=== PATIENT | female | born 1940 | race Two or more races ===

== ENCOUNTER → 2020-12-24 14:35 | Outpatient (CLI) | payer MEDICARE, SELFPAY ==
[2020-12-24 15:59] LABS: Basophils % 0.7 % (0.1-2.0); Eosinophils # 0.1 K/mm3 (0.0-0.4); Eosinophils % 1.2 % (0.1-12.0); Hematocrit 41.1 % (37.0-47.0); Hemoglobin 13.4 g/dL (12.2-16.2); Lymphocytes % 39.6 % (10-50); Mean Corpuscular HGB Conc 32.5 g/dL (31.8-35.4); Mean Corpuscular Volume 98.4 fl (81-99); Mean Platelet Volume 9.7 fl (7.4-10.4); Monocytes # 0.3 K/mm3 (0.1-1.0); Monocytes % 5.8 % (1.7-9.3); Neutrophils # 2.6 K/mm3 (1.8-7.8); Neutrophils % 52.8 % (37.0-80.0); Platelet Count 215 K/mm3 (142-424); Red Blood Count 4.17 M/mm3 (4.20-5.40); Red Cell Distribution Width 13.1 % (11.5-17.5); White Blood Count 4.9 K/mm3 (4.8-10.8)
[2020-12-24 16:08] LABS: Alanine Aminotransferase 21 U/L (12-78); Albumin Level 4.3 g/dl (3.5-5.0); Albumin/Globulin Ratio 1.7 (1.1-1.8); Alkaline Phosphatase 98 U/L (38-126); Anion Gap 8.5 mEq/L (5-15); Aspartate Amino Transferase 40 U/L (14-36); Bilirubin,Total 0.8 mg/dl (0.2-1.3); Blood Urea Nitrogen 26 mg/dl (7-17); Calcium 9.6 mg/dl (8.4-10.2); Carbon Dioxide 31 mmol/L (22.0-30.0); Chloride 105 mmol/L (98-107); Chol/HDL Ratio 2.4 (1-3.5); Cholesterol 222 mg/dl (140-200); Estimated Glomerular Filt Rate 69 ml/min (>60); GFR (African American) 84 ML/MIN (>60); Globulin 2.6 g/dL (1.3-3.2); Glucose 97 mg/dl (74-100); HDL Cholesterol 94 mg/dl (40-60); Potassium 4.5 mmoL/L (3.5-5.1); Sodium 140 mmol/L (136-145); Total Protein,Serum 6.9 g/dl (6.3-8.2); Triglycerides 47 mg/dl (30-150); VLDL Cholesterol 9 mg/dL (0-40)
[2020-12-24 16:19] LABS: Direct LDL Cholesterol 84.67 mg/dL (100-129)
[2020-12-24 16:23] LABS: Erythrocyte Sedimentation Rate 25 mm/hr (0-30)
[2020-12-24 16:26] LABS: 25-OH Vitamin D, Total 86.8 ng/mL (30-100)
[2020-12-24 16:27] LABS: Free T4 (Free Thyroxine) 1.38 ng/dl (0.78-2.19)
[2020-12-24 16:41] LABS: Thyroid Stimulating Hormone 3.22 uIU/mL (0.465-4.68)
[2020-12-24 17:16] LABS: Vitamin B12 929 pg/mL (239-931)
[2020-12-24 17:24] LABS: Folate > 20.00 ng/mL
== END ==
PROVIDERS: Visit Provider Emergency Medicine
DX: R53.83 Other fatigue (principal); E78.5 Hyperlipidemia, unspecified; E55.9 Vitamin D deficiency, unspecified; M54.2 Cervicalgia
CPT/HCPCS: 80053; 80061; 82306; 82607; 82746; 84439; 84443; 85025; 85651

== ENCOUNTER → 2021-01-21 09:59 | Outpatient (CLI) | payer MEDICARE, OTHER, SELFPAY ==
--- NOTE | 2021-01-21 09:59 | MM_ITS ---
PROCEDURE INFORMATION: Exam: MG Screening 3D Mammography Exam date and time: 01/21/2021 9:59 AM Age: 80 years old Clinical indication: Encounter for screening mammogram for malignant neoplasm of breast TECHNIQUE: Imaging protocol: Screening tomosynthesis and 2D mammography including computer-aided detection (CAD) when performed. COMPARISON: No relevant prior studies available. FINDINGS: MAMMOGRAPHY: Breast composition: The breast tissue is heterogeneously dense, which may obscure small masses. Mass: None. Architectural distortion: None. Calcifications: No suspicious calcifications. Asymmetric density: None. Skin thickening: None. Axillary adenopathy: None. IMPRESSION: No mammographic evidence of malignancy. Annual screening is recommended unless otherwise clinically indicated. ASSESSMENT: BI-RADS Category 1: Negative
--- NOTE | 2021-01-21 09:59 | XR_ITS ---
PROCEDURE: XR MULTIPLE SPINE 6+V CLINICAL INDICATION: back pain COMPARISON: No exams were available for comparison FINDINGS: C-spine: Five views, degenerative disc disease C3-C4 C4-C5 C5-C6 and C6-C7. Facet hypertrophic changes C3-C7. Foraminal narrowing on the right at C6-C7 and on the left at C3-C4 C5-C6 and C6-C7. Thoracic spine: A mild kyphosis. No acute fracture or dislocation. Multilevel degenerative disc disease with small endplate osteophytes. No malalignment. Lumbar spine: Lumbar scoliosis convex right. Degenerative disc disease L4-5. Small anterior osteophytes are present. No lytic or blastic changes. No acute fracture. 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 Dictated by: Atif Rahman MD 01/21/2021 20:02 Atif Rahman MD in [place] 01/21/2021 20:02
--- NOTE | 2021-01-21 09:59 | XR_ITS ---
PROCEDURE: XR DEXA AXIAL SKELETON CLINICAL HISTORY: screening COMPARISON: No exams were available for comparison FINDINGS: The right hip BMD is 0.57 with a T-score of -2.5. The left hip BMD is 0.618 with a T-score of -2.7. The lumbar spine BMD is 0.723 with a T-score of -2.9. IMPRESSION: This patient is considered osteoporotic according to the World Health Organization criteria. Fracture risk is high. Treatment is advised. Based on these results a follow-up exam is recommended in 1 year. Dictated by: Atif Rahman MD 01/21/2021 12:16 Atif Rahman MD in [place] 01/21/2021 12:16
== END ==
PROVIDERS: PCP Emergency Medicine; Visit Provider Emergency Medicine
DX: M81.0 Age-related osteoporosis without current pathological fracture (principal); Z13.820 Encounter for screening for osteoporosis; Z12.31 Encounter for screening mammogram for malignant neoplasm of breast
CPT/HCPCS: 72084; 77063; 77067; 77080

== ENCOUNTER → 2021-06-17 12:15 | Outpatient (CLI) | payer MEDICARE, OTHER, SELFPAY ==
--- NOTE | 2021-06-17 12:21 | XR_ITS ---
PROCEDURE: XR WRIST LT MIN 3V CLINICAL INDICATION: left wrist pain, CTS COMPARISON: No exams were available for comparison FINDINGS: No fracture or dislocation. No lytic or blastic change. There is normal mineralization. Chondrocalcinosis is present at the triangular fibrocartilage. There are osteoarthritic changes at the 1st carpal metacarpal junction. Small calcific density is present along the anterior aspect the scaphoid on the lateral view could be due to an old injury or dystrophic calcification Other findings:None. 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
--- NOTE | 2021-06-17 12:21 | XR_ITS ---
PROCEDURE: XR WRIST RT MIN 3V CLINICAL INDICATION: RIGHT WRIST PAIN, CTS COMPARISON: No exams were available for comparison FINDINGS: No fracture or dislocation. No lytic or blastic change. There is normal mineralization. There is chondrocalcinosis at the triangular fibrocartilage. Subchondral cystic changes are present involving the lunate and the scaphoid. Mild osteoarthritic changes 1st carpal metacarpal junction with nonspecific 2 mm calcific density lateral to the trapezium. Chondrocalcinosis also noted along the anterior aspect of the wrist joint Other findings:None. IMPRESSION: Chondrocalcinosis with degenerative changes. Dictated by: Atif Rahman MD 06/17/2021 14:08 Atif Rahman MD in [place] 06/17/2021 14:08
== END ==
PROVIDERS: PCP Emergency Medicine; Visit Provider Orthopaedic Surgery
DX: M25.532 Pain in left wrist (principal); M25.531 Pain in right wrist
CPT/HCPCS: 73110

== ENCOUNTER → 2021-06-28 12:04 | Outpatient (CLI) | payer MEDICARE, OTHER, SELFPAY ==
--- NOTE | 2021-06-28 12:19 | XR_ITS ---
PROCEDURE: XR CHEST 2V CLINICAL HISTORY: preop, sx 07/01/21 COMPARISON: No exams were available for comparison FINDINGS: Borderline cardiomegaly without failure. Mild thoracic kyphosis with diffuse osteopenia No acute bony abnormalities. IMPRESSION: No acute findings. Dictated by: Atif Rahman MD 06/28/2021 14:43 Atif Rahman MD in [place] 06/28/2021 14:43
[2021-06-28 13:31] LABS: Basophils # 0.1 K/mm3 (0-0.2); Basophils % 1.1 % (0.1-2.0); Eosinophils # 0.1 K/mm3 (0.0-0.4); Eosinophils % 1.1 % (0.1-12.0); Hematocrit 42.5 % (37.0-47.0); Hemoglobin 13.8 g/dL (12.2-16.2); Lymphocytes # 2.5 K/mm3 (0.7-4.5); Lymphocytes % 43.3 % (10-50); Mean Corpuscular HGB Conc 32.6 g/dL (31.8-35.4); Mean Corpuscular Hemoglobin 33.2 pg (27.0-31.2); Mean Platelet Volume 8.7 fl (7.4-10.4); Monocytes # 0.3 K/mm3 (0.1-1.0); Monocytes % 5.5 % (1.7-9.3); Neutrophils # 2.8 K/mm3 (1.8-7.8); Neutrophils % 49.1 % (37.0-80.0); Platelet Count 256 K/mm3 (142-424); Red Blood Count 4.16 M/mm3 (4.20-5.40); Red Cell Distribution Width 12.8 % (11.5-17.5); White Blood Count 5.7 K/mm3 (4.8-10.8)
[2021-06-28 13:50] LABS: Alanine Aminotransferase 11 U/L (12-78); Albumin Level 4.4 g/dl (3.5-5.0); Albumin/Globulin Ratio 1.8 (1.1-1.8); Alkaline Phosphatase 73 U/L (38-126); Anion Gap 7.5 mEq/L (5-15); Aspartate Amino Transferase 29 U/L (14-36); Bilirubin,Total 0.3 mg/dl (0.2-1.3); Blood Urea Nitrogen 21 mg/dl (7-17); Calcium 9.8 mg/dl (8.4-10.2); Carbon Dioxide 33 mmol/L (22.0-30.0); Chloride 102 mmol/L (98-107); Estimated Glomerular Filt Rate 69 ml/min (>60); GFR (African American) 83 ML/MIN (>60); Globulin 2.5 g/dL (1.3-3.2); Glucose 79 mg/dl (74-100); Potassium 5.5 mmoL/L (3.5-5.1); Sodium 137 mmol/L (136-145); Total Protein,Serum 6.9 g/dl (6.3-8.2)
== END ==
PROVIDERS: Visit Provider Orthopaedic Surgery
DX: Z01.818 Encounter for other preprocedural examination (principal); Z11.52 Encounter for screening for COVID-19; G56.01 Carpal tunnel syndrome, right upper limb
CPT/HCPCS: 36415; 71046; 80053; 85025; C9803; U0003; U0005

== ENCOUNTER 2021-07-01 11:11 | Day surgery (SDC) | payer MEDICARE, OTHER, SELFPAY ==
[2021-07-01 11:33] VITALS: BMI 19.8
[2021-07-01 11:39] VITALS: BP 140/74; PULSE 50; RESP 18; TEMP 36.7; O2SAT 98
[2021-07-01 13:41] VITALS: BP 80/42; PULSE 53; RESP 18; TEMP 36.2; O2SAT 93
[2021-07-01 13:55] VITALS: BP 70/42; PULSE 50; RESP 18; O2SAT 95
[2021-07-01 14:02] VITALS: BP 85/48; PULSE 47; RESP 18; O2SAT 94
[2021-07-01 14:13] VITALS: BP 139/65; PULSE 48; RESP 18; O2SAT 94
[2021-07-01 14:30] VITALS: BP 153/75; PULSE 56; RESP 18; O2SAT 93
--- NOTE | 2021-07-01 15:38 | HMH.OPNOTE ---
Date of procedure: 07/01/21 Pre-op Diagnosis:: Carpal tunnel syndrome, right wrist Post-op Diagnosis:: Same Procedure performed:: Open carpal tunnel release, right wrist Surgeon:: Cali Nobles MD Infrastructure Analyst(s):: Samia Dia PA-C Anesthesia: MAC, local (10 mL of 1% lidocaine with epinephrine) Estimated blood loss (mL): 1 Clinical Note:: Patient is an 81-year-old female with bilateral carpal tunnel syndrome with long-standing symptoms. The clinical findings are consistent with the diagnosis of carpal tunnel syndrome. EMG/NCV studies confirmed carpal tunnel syndrome on both sides and she has more severe symptoms on the right side. Patient is having significant and disabling symptoms and has failed to respond adequately to conservative management. Therefore, carpal tunnel release surgery is necessary to relieve symptoms, preserve the remaining fibers of the median nerve, improve function and decrease the pain, paresthesias and weakness and to prevent permanent nerve damage. Please refer to my office note for full details. Operative findings:: The intraoperative findings showed the median nerve to be tightly compressed and hyperemic. The flexor retinaculum was noted to be thick and tight. There was mild synovitis in the carpal tunnel. There was no evidence of any space-occupying lesions within the carpal tunnel. Operative note:: On the day of the surgery the patient and her daughter were met in the preoperative area. Patient was positively identified and the operative site was marked and initialed by me. A physical examination was performed and the chart was updated. I have again discussed the procedure, risks, benefits and alternatives with the patient. The complications discussed include but are not limited to- bleeding, injury to nerves, blood vessels and tendons, infection, wound dehiscence, incomplete relief/continued pain, persistent numbness, palmar hypersensitivity, pillar pain, DVT/PE, complex regional pain syndrome(CRPS), worsening of nerve damage, failure of the condition to improve, incomplete return of function, bowstringing of tendons, weakness of business operations specialist strength, recurrence, failure of the surgery to accomplish the desired goals, decreased use of the hand, loss of use of the arm, loss of the hand or arm, loss of life. Likely need for further surgery in the future has been discussed. I've indicated to the patient where the proposed incision would be made and also discussed the possibility of extending the incision if needed to accomplish an effective release. We have discussed how the goal of surgery is to protect the fibers which have remained healthy and hopefully reverse the symptoms of the fibers which are compromised but still recoverable. We have explained that, fibers that are permanently damaged will not recover. They asked appropriate questions and all have been answered by me. Patient wished to proceed with the surgery. Patient understood the risks, agreed to proceed with surgery and no guarantees or assurances were given or implied. The patient was brought to the operating room and placed supine on the operating table. The right upper extremity was placed over a side table. All the bony prominences were well-padded. The patient had a MAC anesthesia administered by the soiled linen distributor. A well-padded tourniquet cuff was placed over the upper arm. The right upper extremity was prepped and draped in the usual sterile fashion. A preprocedure timeout was performed as per hospital policy. Administration of prophylactic antibiotics was confirmed with the soiled linen distributor. The skin incision was marked using the Amaay's landmarks, just ulnar to the thenar crease. The skin and soft tissue around the incision were then infiltrated with 10 mL of 1% lidocaine with epinephrine. The limb was exsanguinated with the Esmarch bandage and tourniquet was inflated to 250 mmHg. Please see nursing records for the total tourniquet time. Amaya's landmarks were utiliz
== END 2021-07-01 14:30 | disposition home or self-care (01) ==
LOC: OR 11:14
PROVIDERS: PCP Emergency Medicine; Visit Provider Orthopaedic Surgery
PROC: (CPT 64721; principal; 2021-07-01 12:30)
DX: G56.01 Carpal tunnel syndrome, right upper limb (principal)
CPT/HCPCS: 64721; 96374

== ENCOUNTER 2021-07-22 06:16 | Day surgery (SDC) | payer MEDICARE, OTHER, SELFPAY ==
[2021-07-18 12:38] VITALS: BMI 19.8
[2021-07-22 07:11] VITALS: BP 161/50; PULSE 51; RESP 18; TEMP 36.8; O2SAT 98
--- NOTE | 2021-07-22 10:18 | HMH.ANESCL ---
[facility] Anesthesia Checklist - Patient Identification Patient Identification: Arm Band - Structural Data Admitted From: Home Planned Operative Procedure/s: Left Carpal Tunnel Release Consent for Planned Operative Procedure(s) Verified: Yes Verified Documents: Surgical Consent, History and Physical - NPO Status Verified Time NPO: 00:00 - Additional verifications Anesthesia Reactions: Yes (HYPOTENSION) Hx Blood Transfusions: No Blood Transfusion Reaction: No - Airway Assessment C-Spine Mobility Assessed: Yes (mp2) TMJ Mobility Assessed: Yes Dentition: Good Dentition (upper bridge) - Neurological Assessment Level of Consciousness: Awake, Alert - Anesthesia Plan Anesthesia Risk discussed: Yes Anesthesia Plan: Verified ASA Class: II Anesthesia Type: MAC w/Block (Supraclavicular nerve block) [facility] History I have reviewed the patient's past medical history: Yes Medical History: Reports:: Hyperlipidemia, Hypertension Denies:: Cancer, Diabetes Mellitus Type 1, Diabetes Mellitus Type 2, Internal Pacemaker, MRSA, Seizures *Have you ever received a pneumonia vaccine?: Yes *Have you received a flu vaccine this season?: Yes Other Medical History: Reports: Arthritis. Denies: Blood Transfusion Reaction Anesthesia experience/problems:: nac Laterality Cases: Right: Carpal Tunnel Release Other Surgeries: Yes: Cholecystectomy, Hysterectomy-Total, Plastic Surgery, Other. No: Pacemaker Amputation: No Fractures: No - *Social History Last grade of school completed: High school graduate Smoking Status: Never smoker Alcohol Intake: never Alcohol Intake Frequency:: a few times a month Substance Use Type: former substance user *Occupational Status:: retired *Travel in the last 8 weeks: None Family Hx:: Diabetes
[2021-07-22 10:21] VITALS: TEMP 43
[2021-07-22 10:50] VITALS: BP 146/82; PULSE 50; RESP 18; TEMP 36.2; O2SAT 95
[2021-07-22 11:05] VITALS: BP 158/84; PULSE 51; RESP 18; O2SAT 94
[2021-07-22 11:20] VITALS: BP 174/82; PULSE 50; RESP 18; O2SAT 95
--- NOTE | 2021-07-22 11:39 | HMH.OPNOTE ---
Date of procedure: 07/22/21 Pre-op Diagnosis:: Carpal tunnel syndrome, left Post-op Diagnosis:: Same Procedure performed:: Open carpal tunnel release, left wrist Surgeon:: Cali Nobles MD Publications Writer(s):: Samia Dia PA-C TON CONTAINER SHIPPER:: Javier Cameron Anesthesia: MAC, regional (Supraclavicular nerve block) Estimated blood loss (mL): 2 Clinical Note:: Patient is an 81-year-old female with left carpal tunnel syndrome with long-standing symptoms. The clinical findings are consistent with the diagnosis of carpal tunnel syndrome. Previously EMG/NCV studies confirmed carpal tunnel syndrome on both sides and she previously underwent successful carpal tunnel release on the right side. Patient is having significant and disabling symptoms on the left side and has failed to respond adequately to conservative management. Therefore, left carpal tunnel release surgery is necessary to relieve symptoms, preserve the remaining fibers of the median nerve, improve function and decrease the pain, paresthesias and weakness and to prevent permanent nerve damage. Please refer to my office note for full details. Operative findings:: The intraoperative findings showed the median nerve to be tightly compressed and hyperemic. The flexor retinaculum was noted to be thick and tight. There was mild synovitis in the carpal tunnel. There was no evidence of any space-occupying lesions within the carpal tunnel. Operative note:: On the day of the surgery the patient was met in the preoperative area. Patient was positively identified and the operative site was marked and initialed by me. A physical examination was performed and the chart was updated. I have again discussed the procedure, risks, benefits and alternatives with the patient. The complications discussed include but are not limited to- bleeding, injury to nerves, blood vessels and tendons, infection, wound dehiscence, incomplete relief/continued pain, persistent numbness, palmar hypersensitivity, pillar pain, DVT/PE, complex regional pain syndrome(CRPS), worsening of nerve damage, failure of the condition to improve, incomplete return of function, bowstringing of tendons, weakness of supervisor crack off strength, recurrence, failure of the surgery to accomplish the desired goals, decreased use of the hand, loss of use of the arm, loss of the hand or arm, loss of life. Likely need for further surgery in the future has been discussed. I've indicated to the patient where the proposed incision would be made and also discussed the possibility of extending the incision if needed to accomplish an effective release. We have discussed how the goal of surgery is to protect the fibers which have remained healthy and hopefully reverse the symptoms of the fibers which are compromised but still recoverable. We have explained that, fibers that are permanently damaged will not recover. Patient asked appropriate questions and all have been answered by me. Patient wished to proceed with the surgery. Patient understood the risks, agreed to proceed with surgery and no guarantees or assurances were given or implied. The patient was brought to the operating room and placed supine on the operating table. The left upper extremity was placed over a side table. All the bony prominences were well-padded. The patient had a supraclavicular nerve block and MAC anesthesia administered by the business initiatives manager. A well-padded tourniquet cuff was placed over the upper arm. The left upper extremity was prepped and draped in the usual sterile fashion. A preprocedure timeout was performed as per hospital policy. Administration of prophylactic antibiotics was confirmed with the business initiatives manager. The skin incision was marked using the Amaya's landmarks, just ulnar to the thenar crease. The limb was exsanguinated with the Esmarch bandage and tourniquet was inflated to 250 mmHg. Please see nursing records for the total tourniquet time. Amaya's landmarks were utilized and a skin incision was made pa
[2021-07-22 11:50] VITALS: BP 179/82; PULSE 53; RESP 18; O2SAT 94
== END 2021-07-22 11:50 | disposition home or self-care (01) ==
LOC: OR 06:18
PROVIDERS: PCP Emergency Medicine; Visit Provider Orthopaedic Surgery
PROC: (CPT 64721; principal; 2021-07-22 08:45)
DX: G56.01 Carpal tunnel syndrome, right upper limb (principal)
CPT/HCPCS: 64721; 96374; J0670

== ENCOUNTER → 2021-12-21 14:34 | Outpatient (CLI) | payer MEDICARE, OTHER, SELFPAY ==
--- NOTE | 2021-12-21 14:40 | XR_ITS ---
FINAL REPORT CLINICAL HISTORY: wrist pain. patient fell a month ago. COMPARISON: June 17, 2021 FINDINGS: LEFT WRIST 3 views were obtained. There is a subacute impacted fracture of the distal radial metaphysis. There is also a fracture of the base of the ulnar styloid process. There are soft tissue calcifications distal to the ulna. There is osteopenia. There are mild and moderate degenerative changes. There is soft tissue swelling of the wrist. IMPRESSION: Fracture of the distal radial metaphysis and the base of the ulnar styloid process. Reviewed, Interpreted and Dictated by Gilberto Alvarado III, MD Transcribed by Scarlet Yates Authenticated by Gilberto Alvarado III, MD on 12/21/2021 03:50:59 PM [facility]
== END ==
PROVIDERS: PCP Emergency Medicine; Visit Provider Orthopaedic Surgery
DX: M25.532 Pain in left wrist (principal)
CPT/HCPCS: 73110

== ENCOUNTER 2021-12-21 16:56 | Outpatient (RCR) | payer MEDICARE, OTHER, SELFPAY | END 2021-12-21 17:48 | disposition home or self-care (01) | LOC: PT 16:56 | PROVIDERS: Visit Provider Orthopaedic Surgery | DX: S52.532P Colles' fracture of left radius, subsequent encounter for closed fracture with malunion (principal) ==